=== PATIENT | female | born 1955 | race Caucasian/White ===

== ENCOUNTER 2019-06-13 13:37 | Emergency (ER) | payer OTHER ==
[2019-06-13 14:33] LABS: CHLORIDE,CL 99 mmol/L (98-107); SODIUM,NA 140 mmol/L (136-145)
[2019-06-13 14:34] LABS: ANION GAP 21.9 mmol/L (10-20)
[2019-06-13 15:05] LABS: BARBITURATE SCREEN,URINE NEGATIVE (NEGATIVE); BENZODIAZEPINES SCREEN,URINE NEGATIVE (NEGATIVE); EDDP,URINE SCREEN NEGATIVE (NEGATIVE); METHAMPHETAMINE SCREEN, URINE NEGATIVE (NEGATIVE); TCA SCREEN,URINE POSITIVE (NEGATIVE); THC SCREEN,URINE 50 NG/ML NEGATIVE (NEGATIVE)
--- NOTE | 2019-06-13 15:10 | EDM.PDOCBH ---
ED HPI GENERAL MEDICAL PROBLEM - General Chief Complaint: Drug or Alcohol Abuse Stated Complaint: suicidal ideation Time Seen by Provider: 06/13/19 13:45 Source of Information: Reports: Patient, Police History Limitations: Reports: Intoxication - History of Present Illness INITIAL COMMENTS - FREE TEXT/NARRATIVE: Mariposa is a 63 year old female who presents to ER per EMS with suicidal ideation. Patient had talked with daughter today and had expressed "that she just wanted to kill herself". Orderlies Teacher were called to scene and were enroute to our facility when patient complained of shortness of breath. EMS did note elevated blood pressure and was anxious and uncooperative with them. Patient states "wanted to be for 2 years. COVID has made things much worse for her ". States that she would "kill herself except she is scared that the act would hurt". She denies every voicing suicidal concerns to anyone, has never attempted. Has no plan. Relates has verbally abusive that " complicates my life". At present, denies shortness of breath. "was just anxious". No chest pain. Denies nausea/vomiting/abdominal pain. No urinary symptoms. Is intoxicated. Admits to drinking a quart of vodka today. Onset: Today Duration: Hour(s): Location: Reports: Generalized Associated Symptoms: Denies: Confusion, Chest Pain, Cough, Fever/Chills, Loss of Appetite, Nausea/Vomiting, Shortness of Breath - Related Data Allergies Allergy/AdvReac Type Severity Reaction Status Date / Time aspirin Allergy Other Verified 06/13/19 16:11 erythromycin base Allergy Shortness Verified 06/13/19 16:11 of Breath ibuprofen [From Advil] Allergy Other Verified 06/13/19 16:11 lidocaine Allergy Shortness Verified 06/13/19 16:11 of Breath lisinopril Allergy Cough Verified 06/13/19 16:11 naproxen [From Aleve] Allergy Shortness Verified 06/13/19 16:11 of Breath penicillin G Allergy Hives Verified 06/13/19 16:11 Sulfa (Sulfonamide Allergy Shortness Verified 06/13/19 16:11 Antibiotics) of Breath tetracycline Allergy Other Verified 06/13/19 16:11 Home Meds: Home Meds Acetaminophen with Codeine [Tylenol with Codeine #3 Tablet] 1 each PO Q6H PRN [History] Calcium Carbonate/Vitamin D3 [Caltrate 600+D] 1 tab PO DAILY 06/13/19 [History] Cholecalciferol (Vitamin D3) [Vitamin D3] 2,000 unit PO DAILY 06/13/19 [History] Cyclobenzaprine [Flexeril] 10 mg PO TID PRN 06/13/19 [History] FA/Lycopene/Lut/MV,Ca,Iron,Min [Centrum] 1 tab PO DAILY 06/13/19 [History] Fluticasone Propionate [Flonase] 16 gm NS BID 06/13/19 [History] Lansoprazole [Prevacid] 15 mg PO DAILY 06/13/19 [History] Losartan [Cozaar] 25 mg PO DAILY 06/13/19 [History] Novelty-3/DHA/Epa/Fish Oil [Novelty-3 Fish Oil 1,000 MG Sfgl] 1,000 mg PO DAILY [History] atorvaSTATin Calcium [Lipitor] 20 mg PO BEDTIME 06/13/19 [History] Past Medical History Cardiovascular History: Reports: Hypertension Psychiatric History: Reports: Addiction, Depression Social & Family History - Tobacco Use Smoking Status *Q: Current Every Day Smoker Years of Tobacco use: 40 Packs/Tins Daily: 1 - Alcohol Use Alcohol Use History: Yes - Recreational Drug Use Recreational Drug Use: No ED ROS GENERAL - Review of Systems Review Of Systems: See Below Constitutional: Denies: Fever, Chills, Malaise, Weakness, Decreased Appetite HEENT: Denies: Ear Pain, Sinus Problem, Throat Pain Respiratory: Denies: Shortness of Breath, Cough Cardiovascular: Denies: Chest Pain, Edema, Lightheadedness Endocrine: Reports: Fatigue GI/Abdominal: Denies: Abdominal Pain, Nausea, Vomiting : Reports: No Symptoms Musculoskeletal: Reports: No Symptoms Skin: Reports: No Symptoms Neurological: Reports: No Symptoms ED EXAM, BEHAVIORAL HEALTH - Physical Exam Exam: See Below Exam Limited By: Intoxication General Appearance: Alert, WD/WN, Anxious Ears: Normal External Exam, Normal TMs Nose: Normal Inspection, Normal Mucosa, No Blood Throat/Mouth: Normal Inspection, Normal Oropharynx, Other (mucous membranes dry) Head: Normocephalic Neck: Normal Inspection, Supple, Non-Tender Respiratory/Chest: No Respiratory Distress, Lungs Clear, Normal Breath Sounds Cardiovascular: Regular Rate, Rhythm GI/Abdominal: Normal Bowel Sounds, Soft, Non-Tender Extremities: Normal Inspection, No Pedal Edema Psychiatric: Alert, Oriented, Agitated, Suicidal Thoughts Skin Exam: Warm, Dry COURSE, BEHAVIORAL HEALTH COMP - Course Vital Signs: Last Vital Signs Temp 96.2 F L 06/13/19 13:45 Pulse 69 06/13/19 13:45 Resp 14 06/13/19 13:45 BP 161/72 H 06/13/19 13:45 Pulse Ox 99 06/13/19 13:45 Orders, Labs, Meds: Laboratory Tests 06/13/19 06/13/19 06/13/19 Range/Units 14:03 14:03 14:03 WBC 7.8 (4.0-10.0) x10^3/uL RBC 5.29 (4.00-5.50) x10^6/uL Hgb 15.5 (12.0-16.0) g/dL Hct 45.0 (33.0-47.0) % MCV 85.1 (78.0-93.0) fL MCH 29.3 (26.0-32.0) pg MCHC 34.4 (32.0-36.0) g/dL RDW Coeff of Francis 13.2 (10.0-15.0) % Plt Count 283 (130-400) x10^3/uL Neut % (Auto) 48.2 L (50.0-80.0) % Lymph % (Auto) 38.1 (25.0-50.0) % Evangeline % (Auto) 12.1 H (2.0-11.0) % Eos % (Auto) 0.8 (0.0-4.0) % Baso % (Auto) 0.8 (0.2-1.2) % Sodium 140 (136-145) mmol/L Potassium 3.9 (3.5-5.1) mmol/L Chloride 99 (98-107) mmol/L Carbon Dioxide 23 (21-32) mmol/L Anion Gap 21.9 H (10-20) mmol/L BUN 13 (7-18) mg/dL Creatinine 0.9 (0.55-1.02) mg/dL Est Cr Clr Drug Dosing TNP Estimated GFR (MDRD) > 60 Glucose 97 (74-106) mg/dL Calcium 8.9 (8.5-10.1) mg/dL Corrected Calcium 8.82 (8.5-10.1) mg/dL Total Bilirubin 0.4 (0.2-1.0) mg/dL AST 72 H (15-37) U/L ALT 64 H (14-59) U/L Alkaline Phosphatase 110 (46-116) U/L C-Reactive Protein 0.2 (<=0.9) mg/dL Total Protein 8.4 H (6.4-8.2) g/dL Albumin 4.1 (3.4-5.0) g/dL Globulin 4.3 Albumin/Globulin Ratio 0.95 Urine Color (YELLOW) Urine Appearance (CLEAR) Urine pH (5.0-8.0) Ur Specific Ulm Urine Protein (NEGATIVE) mg/dL Urine Glucose (UA) (NEGATIVE) mg/dL Urine Ketones (NEGATIVE) mg/dL Urine Occult Blood (NEGATIVE) Urine Nitrite (NEGATIVE) Urine Bilirubin (NEGATIVE) Urine Urobilinogen (0.2) EU/dL Ur Leukocyte Esterase (NEGATIVE) Urine RBC (NOT SEEN) /HPF Urine WBC (NOT SEEN) /HPF Ur Squamous Epith Cells (NEGATIVE) /HPF Urine Bacteria (NEGATIVE) /HPF Urine Mucus (NEGATIVE) /LPF Urine Opiates Screen (NEGATIVE) Ur Buprenorphine Scrn (NEGATIVE) Ur Oxycodone Screen (NEGATIVE) Ur EDDP (Meth Metab) (NEGATIVE) Urine Methadone Screen (NEGATIVE) Ur Barbiturates Screen (NEGATIVE) Ur Tricyclics Screen (NEGATIVE) Ur Phencyclidine Scrn (NEGATIVE) Ur Amphetamine Screen (NEGATIVE) U Methamphetamines Scrn (NEGATIVE) Urine MDMA Screen (NEGATIVE) U Benzodiazepines Scrn (NEGATIVE) U Cocaine Metab Screen (NEGATIVE) U Marijuana (THC) Screen (NEGATIVE) Ethyl Alcohol 371 H* (0-3) mg/dL 06/13/19 06/13/19 Range/Units 14:55 14:55 WBC (4.0-10.0) x10^3/uL RBC (4.00-5.50) x10^6/uL Hgb (12.0-16.0) g/dL Hct (33.0-47.0) % MCV (78.0-93.0) fL MCH (26.0-32.0) pg MCHC (32.0-36.0) g/dL RDW Coeff of Francis (10.0-15.0) % Plt Count (130-400) x10^3/uL Neut % (Auto) (50.0-80.0) % Lymph % (Auto) (25.0-50.0) % Evangeline % (Auto) (2.0-11.0) % Eos % (Auto) (0.0-4.0) % Baso % (Auto) (0.2-1.2) % Sodium (136-145) mmol/L Potassium (3.5-5.1) mmol/L Chloride (98-107) mmol/L Carbon Dioxide (21-32) mmol/L Anion Gap (10-20) mmol/L BUN (7-18) mg/dL Creatinine (0.55-1.02) mg/dL Est Cr Clr Drug Dosing Estimated GFR (MDRD) Glucose (74-106) mg/dL Calcium (8.5-10.1) mg/dL Corrected Calcium (8.5-10.1) mg/dL Total Bilirubin (0.2-1.0) mg/dL AST (15-37) U/L ALT (14-59) U/L Alkaline Phosphatase (46-116) U/L C-Reactive Protein (<=0.9) mg/dL Total Protein (6.4-8.2) g/dL Albumin (3.4-5.0) g/dL Globulin Albumin/Globulin Ratio Urine Color Yellow (YELLOW) Urine Appearance Slightly cloudy H (CLEAR) Urine pH 6.5 (5.0-8.0) Ur Specific Ulm 1.015 Urine Protein 100 H (NEGATIVE) mg/dL Urine Glucose (UA) Negative (NEGATIVE) mg/dL Urine Ketones Negative (NEGATIVE) mg/dL Urine Occult Blood Negative (NEGATIVE) Urine Nitrite Negative (NEGATIVE) Urine Bilirubin Negative (NEGATIVE) Urine Urobilinogen 0.2 (0.2) EU/dL Ur Leukocyte Esterase Trace H (NEGATIVE) Urine RBC 0-5 (NOT SEEN) /HPF Urine WBC 5-10 H (NOT SEEN) /HPF Ur Squamous Epith Cells Few H (NEGATIVE) /HPF Urine Bacteria Rare (NEGATIVE) /HPF Urine Mucus Occasional H (NEGATIVE) /LPF Urine Opiates Screen Negative (NEGATIVE) Ur Buprenorphine Scrn Negative (NEGATIVE) Ur Oxycodone Screen Negative (NEGATIVE) Ur EDDP (Meth Metab) Negative (NEGATIVE) Urine Methadone Screen Negative (NEGATIVE) Ur Barbiturates Screen Negative (NEGATIVE) Ur Tricyclics Screen Positive H (NEGATIVE) Ur Phencyclidine Scrn Negative (NEGATIVE) Ur Amphetamine Screen Negative (NEGATIVE) U Methamphetamines Scrn Negative (NEGATIVE) Urine MDMA Screen Negative (NEGATIVE) U Benzodiazepines Scrn Negative (NEGATIVE) U Cocaine Metab Screen Negative (NEGATIVE) U Marijuana (THC) Screen Negative (NEGATIVE) Ethyl Alcohol (0-3) mg/dL Re-Assessment/Re-Exam: Patient is much more calm. Talking with police officers. 1520-Contacted [facility] screener with status of patient. Labs are normal. Blood alcohol 371. Urine drug screen positive only for tricyclics. 1535- Screener talking with patient per phone. 1615 Screener does not feel patient is in imminent danger. Unable to get in touch with or daughter. Friend Margarita here. Discussed status with her and patient. She is aware that patient cannot be by herself at minimum of the next 24 hours. Advised to avoid any further alcohol. Push fluids. Screener will also be contacting patient's friend in regards to concern. Departure - Departure Time of Disposition: 16:26 Disposition: Home, Self-Care 01 Condition: Fair Clinical Impression: Alcohol abuse, Suicidal ideation - Discharge Information *PRESCRIPTION DRUG MONITORING PROGRAM REVIEWED*: No *COPY OF PRESCRIPTION DRUG MONITORING REPORT IN PATIENT CHARLI: No Referrals: Laura Machado, [Primary Care Provider] - Forms: ED Department Discharge Additional Instructions: 1. Rest 2. Push fluids 3. No further alcohol 4. Patient to not be alone for at minimum for the next 24 hours. 5. Follow up with [facility] [employer] for any further direction or services. Sepsis Event Note - Evaluation Sepsis Screening Result: No Definite Risk - Focused Exam Vital Signs: Vital Signs Temp Pulse Resp BP Pulse Ox 06/13/19 13:45 96.2 F L 69 14 161/72 H 99 Date Exam was Performed: 06/13/19 Time Exam was Performed: 16:25
== END 2019-06-13 16:36 | disposition home or self-care (01) ==
LOC: VM.ED 13:37
DX: F10.129 Alcohol abuse with intoxication, unspecified (principal); Y90.8 Blood alcohol level of 240 mg/100 ml or more; F17.210 Nicotine dependence, cigarettes, uncomplicated; I10 Essential (primary) hypertension; F32.9 Major depressive disorder, single episode, unspecified; Z79.899 Other long term (current) drug therapy; Z88.1 Allergy status to other antibiotic agents; Z88.0 Allergy status to penicillin; Z88.2 Allergy status to sulfonamides; Z88.6 Allergy status to analgesic agent
CPT/HCPCS: 36415; 80053; 80305-QW; 80307; 81001; 85025; 86140; 99285

== ENCOUNTER 2020-02-03 15:05 | Emergency (ER) | payer OTHER ==
[2020-02-03] MEDS ORDERED: Sodium Chloride 0.9% 10 ML Syringe FLUSH PRN (15:16)
[2020-02-03] MEDS ORDERED: Sodium Chloride 0.9% 1,000 ML IV ONE ×3 (15:21→19:21)
[2020-02-03] MEDS ORDERED: LORazepam 2 MG/ML SDV ONE ×3 (15:21→15:41)
[2020-02-03] MEDS ORDERED: LORazepam 2 MG/ML SDV IVPUSH ONE ×3 (15:25→19:17)
[2020-02-03] MEDS ORDERED: Flumazenil 0.1 MG/ML 5 ML MDV IVPUSH PRN ×3 (15:25→19:17)
--- NOTE | 2020-02-03 15:33 | CT ---
[id number] CT/CT Head Stroke Protocol Exam: CT Head Stroke Protocol Clinical Data: NEUROLOGIC DEFICIT COMPARISON: NO PREVIOUS SIMILAR EXAM IS AVAILABLE FINDINGS: There is significant motion artifact There is no distinct abnormal hypodensity There is no middle cerebral artery sign A repeat study is suggested Report called at time of exam There is no hemorrhage IMPRESSION: LIMITED EXAM NO HEMORRHAGE CONSIDER FOLLOW-UP Phong Thompson MD 02/03/20 [id number] Thank you for allowing us to participate in the care of your patient.
[2020-02-03] MEDS ORDERED: Fosphenytoin 500 MG.PE/10 ML SDV ONE (15:48)
[2020-02-03 15:49] LABS: PTT,PARTIAL THROMBOPLSTIN TIME 25.6 SEC (25.6-32.8)
[2020-02-03 15:58] LABS: CHLORIDE,CL 103 mmol/L (98-107); SODIUM,NA 139 mmol/L (136-145)
[2020-02-03 16:01] LABS: ANION GAP 13.7 mmol/L (10-20)
[2020-02-03] MEDS ORDERED: Succinylcholine 200 MG/10 ML MDV ONE (16:03)
[2020-02-03] MEDS ORDERED: Rocuronium 50 MG/5 ML Vial ONE (16:03)
[2020-02-03 16:43] LABS: BUPRENORPHINE,URINE NEGATIVE (NEGATIVE); MARIJUANA,URINE NEGATIVE (NEGATIVE); METHYLENEDIOXYMETHAMP,UR NEGATIVE (NEGATIVE); PHENCYCLIDINE,URINE NEGATIVE (NEGATIVE)
--- NOTE | 2020-02-03 16:44 | CR ---
[id number] RAD/RAD Chest PA or AP 1V EXAM: SINGLE VIEW CHEST. INDICATION: PLACEMENT OF ENDOTRACHEAL TUBE COMPARISON: NO PREVIOUS SIMILAR EXAM IS AVAILABLE FINDINGS: The ET tube is in the position The lungs are clear There is gastric distention There is widening of the mediastinum The cardiac silhouette is enlarged IMPRESSION: ET TUBE IN GOOD POSITION ABNORMAL APPEARANCE OF MEDIASTINUM CONSIDER CONTRAST CT CHEST Phong Thompson MD 02/03/20 [id number] Thank you for allowing us to participate in the care of your patient.
--- NOTE | 2020-02-03 17:25 | EDM.PDOC ---
ED HPI GENERAL MEDICAL PROBLEM - General Stated Complaint: STROKE CODE Time Seen by Provider: 02/03/20 15:14 Source of Information: Reports: EMS - History of Present Illness INITIAL COMMENTS - FREE TEXT/NARRATIVE: Mariposa is a 64 y/o female who was brought to the ER by EMS after she was reported as unresponsive and lying outside on her deck at her home. Last known well time was approximately 1330 today when her saw her and went out to his shed to work. He then returned to the house and found her. EMS was contacted at 1403 and by the time the patient arrived to the ER, it was reported that the patient had made some mumbled speech to first responders, but then other than a hand grasp, dit not respond for the ALS crew. Stroke code called prior to her arrival. The patient is a known alcoholic and her reports that she has been on a 4 day drinking binge; today she had at least a liter of vodka. - Related Data Allergies Allergy/AdvReac Type Severity Reaction Status Date / Time aspirin Allergy Other Verified 06/13/19 16:11 erythromycin base Allergy Shortness Verified 06/13/19 16:11 of Breath ibuprofen [From Advil] Allergy Other Verified 06/13/19 16:11 lidocaine Allergy Shortness Verified 06/13/19 16:11 of Breath naproxen [From Aleve] Allergy Shortness Verified 06/13/19 16:11 of Breath penicillin G Allergy Hives Verified 06/13/19 16:11 Sulfa (Sulfonamide Allergy Shortness Verified 06/13/19 16:11 Antibiotics) of Breath tetracycline Allergy Other Verified 06/13/19 16:11 lisinopril AdvReac Cough Verified 06/14/19 08:53 Home Meds: Home Meds Acetaminophen with Codeine [Tylenol with Codeine #3 Tablet] 1 each PO Q6H PRN 06/13/19 [History] Calcium Carbonate/Vitamin D3 [Caltrate 600+D] 1 tab PO DAILY 06/13/19 [History] Cholecalciferol (Vitamin D3) [Vitamin D3] 2,000 unit PO DAILY 06/13/19 [History] Cyclobenzaprine [Flexeril] 10 mg PO TID PRN 06/13/19 [History] FA/Lycopene/Lut/MV,Ca,Iron,Min [Centrum] 1 tab PO DAILY 06/13/19 [History] Fluticasone Propionate [Flonase] 16 gm NS BID 06/13/19 [History] Lansoprazole [Prevacid] 15 mg PO DAILY 06/13/19 [History] Losartan [Cozaar] 25 mg PO DAILY 06/13/19 [History] Morris-3/DHA/Epa/Fish Oil [Morris-3 Fish Oil 1,000 MG Sfgl] 1,000 mg PO DAILY 06/13/19 [History] atorvaSTATin Calcium [Lipitor] 20 mg PO BEDTIME 06/13/19 [History] Past Medical History Cardiovascular History: Reports: Hypertension Psychiatric History: Reports: Addiction, Depression Review of Systems - Review of Systems Review Of Systems: Unable To Obtain Reason Not Obtained: Patient unresponsive and intoxicated ED EXAM, GENERAL - Physical Exam Exam: See Below Exam Limited By: Altered Mental Status General Appearance: Other (Adult female in complete cervical spine immobilization, offers no response on questioning.) Eye Exam: Bilateral Eye: PERRL (slightly sluggish), Other (1mm) Ears: Normal External Exam Nose: Normal Inspection Throat/Mouth: Normal Inspection, Normal Lips, No Airway Compromise Head: Atraumatic, Normocephalic Neck: Other (C Collar on) Respiratory/Chest: No Respiratory Distress, Lungs Clear, Normal Breath Sounds Cardiovascular: Normal Peripheral Pulses, Regular Rate, Rhythm GI/Abdominal: Normal Bowel Sounds, Soft, Non-Tender, Other (No obvious injuries) (Female) Exam: Normal External Exam Rectal (Female) Exam: Deferred Back Exam: Normal Inspection Extremities: Normal Inspection, Normal Capillary Refill Neurological: Unresponsive Skin Exam: Warm, Dry, Intact #1 Interpretation EKG Date: 02/03/20 Time: 15:23 Rhythm: NSR Rate (Beats/Min): 74 [place]: Normal P-Wave: Present QRS: Normal ST-T: Normal QT: Prolonged Comparison: NA - No Prior EKG Course - Vital Signs Text/Narrative:: 1508 Patient arrives to ER and went directly to CT from EMS. On the way back from CT, noted seizure activity in right arm. Tonic clonic activity and rgidity noted. MARKETING OUTREACH COORDINATOR assessing patient and obtaining hx as able. Seizure like activity last about 1 minute. Lorazepam 2mg IVP ordered. Patient then had a repeated seizure with full tonic clonic activity. Lorazepam 4mg IVP repeated. She subsequently seized a third time and Lorazepam 4mg IVp was ordered, but only 2mg IVP was available in the ER. Phenytoin 1500mg IVPB was ordered at this time. No seizure hx noted in chart. 1530 Patient had now had her 4th seizure and [facility] contacted to request transfer for Status Epilecticuc. Radiologist called with CT results and no bleed noted, but there was aot of motion and repeat study was advised. Dr Artis, Interventional Neurologist regulatory consultant contacted and case presented. He advised intubating patient and not delaying transport and not repeating CT here at this time. 1550 Patient moved to trauma room and prepared for intubation due to Status Epilecticus. The patient did have spontaneous respirations and her oxygen sats were 99-100% on 2 liters/min of oxygen via nasal cannula. Patient proceeded to seize again, the Fosphenytoin was still infusing, but she was given Versed 6mg IVP to alleviate the seizure activity prior to intubation. Airway equipment was prepared and patient was given Ketamine (2mg/kg) 160mg IVP prior to intubation. She was then given Etomidate 20mg IVP and Succinylcholine 120mg IVP for induction and paralyzation. MAC 3 blade was used to visualize the cords by MARKETING OUTREACH COORDINATOR with one failed attempt. MAC 3 Blade used to 7.5cm ET tubed was placed with sylet on second attempt by Polina Noble NREMT-Yumi. The stylet was removed and tube advanced to 23cm at the teeth. Balloon inflated with 10ml of air. Bilateral lung sounds were heard with auscultation and condensation noted in the tube. End tidal CO2 positive and noted to be 50mmHg initially and then noted to be trending down. The tube was secured with a bite block tube amezquita. She was then given Rocuronium 50mg IVP for transport. Patient was ventilated and then placed on ventilator. NG tube was placed. Patient then prepped for transport with [facility]. Labs reviewed. Note CBC neg, AST=45, Troponin=<0.017, UA +nitrates, WBCs 20-30, Bacteria moderate, Blood trace-Urine Cx set up. OUMU=043. UDS +benzos (expected). Report called to [facility], note UTI not treated at this facility. - Orders/Labs/Meds Orders: Active Orders 24 hr Category Date Time Status EKG Documentation Completion [RC] STAT Care 02/03/20 15:17 Active Mckeon Catheter Insertion [Insert Urinary Catheter] [OM. Care 02/03/20 15:30 Ordered PC] Q24H Urinary Catheter Assessment [RC] ASDIRECTED Care 02/03/20 15:19 Active CULTURE URINE [RM] Stat Lab 02/03/20 16:37 Received Sodium Chloride 0.9% [Normal Saline] 1,000 ml Med 02/03/20 15:21 Active IV ONETIME Sodium Chloride 0.9% [Saline Flush] Med 02/03/20 15:16 Active 10 ml FLUSH ASDIRECTED PRN flumazeniL [Romazicon] Med 02/03/20 15:25 Active 0.2 mg IVPUSH ASDIRECTED PRN flumazeniL [Romazicon] Med 02/03/20 15:36 Active 0.2 mg IVPUSH ASDIRECTED PRN Saline Lock Insert [OM.PC] Stat Oth 02/03/20 15:17 Ordered Medication Orders Flumazenil (Romazicon) 0.2 mg IVPUSH ASDIRECTED PRN PRN Reason: Respiratory Depression Flumazenil (Romazicon) 0.2 mg IVPUSH ASDIRECTED PRN PRN Reason: Respiratory Depression Sodium Chloride (Normal Saline) 1,000 mls @ 50 mls/hr IV ONETIME ONE Stop: 02/04/20 11:20 Sodium Chloride (Saline Flush) 10 ml FLUSH ASDIRECTED PRN PRN Reason: Keep Vein Open Labs: Laboratory Tests 02/03/20 02/03/20 02/03/20 Range/Units 15:23 15:23 15:23 WBC 8.3 (4.0-10.0) x10^3/uL RBC 4.98 (4.00-5.50) x10^6/uL Hgb 14.8 (12.0-16.0) g/dL Hct 44.0 (33.0-47.0) % MCV 88.4 D (78.0-93.0) fL MCH 29.7 (26.0-32.0) pg MCHC 33.6 (32.0-36.0) g/dL RDW Coeff of Francis 13.7 (10.0-15.0) % Plt Count 276 (130-400) x10^3/uL Neut % (Auto) 66.0 (50.0-80.0) % Lymph % (Auto) 26.6 (25.0-50.0) % Kendall % (Auto) 4.9 (2.0-11.0) % Eos % (Auto) 1.9 (0.0-4.0) % Baso % (Auto) 0.6 (0.2-1.2) % PT 10.4 (9.5-12.3) SEC INR 1.0 L (2.0-3.5) APTT 25.6 (25.6-32.8) SEC Sodium 139 (136-145) mmol/L Potassium 4.7 (3.5-5.1) mmol/L Chloride 103 (98-107) mmol/L Carbon Dioxide 27 (21-32) mmol/L Anion Gap 13.7 (10-20) mmol/L BUN 14 (7-18) mg/dL Creatinine 0.9 (0.55-1.02) mg/dL Est Cr Clr Drug Dosing TNP Estimated GFR (MDRD) > 60 Glucose 96 (74-106) mg/dL Calcium 8.5 (8.5-10.1) mg/dL Corrected Calcium 8.82 (8.5-10.1) mg/dL Magnesium 1.8 (1.8-2.4) mg/dL Total Bilirubin 0.3 (0.2-1.0) mg/dL AST 45 H (15-37) U/L ALT 42 (14-59) U/L Alkaline Phosphatase 105 (46-116) U/L Troponin I < 0.017 (<=0.056) ng/mL Total Protein 8.3 H (6.4-8.2) g/dL Albumin 3.6 (3.4-5.0) g/dL Globulin 4.7 Albumin/Globulin Ratio 0.77 Amylase 36 (25-115) U/L Lipase 159 (73-393) U/L Urine Color (YELLOW) Urine Appearance (CLEAR) Urine pH (5.0-8.0) Ur Specific Eagle Urine Protein (NEGATIVE) mg/dL Urine Glucose (UA) (NEGATIVE) mg/dL Urine Ketones (NEGATIVE) mg/dL Urine Occult Blood (NEGATIVE) Urine Nitrite (NEGATIVE) Urine Bilirubin (NEGATIVE) Urine Urobilinogen (0.2) EU/dL Ur Leukocyte Esterase (NEGATIVE) Urine RBC (NOT SEEN) /HPF Urine WBC (NOT SEEN) /HPF Ur Squamous Epith Cells (NEGATIVE) /HPF Urine Bacteria (NEGATIVE) /HPF Urine Mucus (NEGATIVE) /LPF Urine Opiates Screen (NEGATIVE) Ur Buprenorphine Scrn (NEGATIVE) Ur Oxycodone Screen (NEGATIVE) Ur EDDP (Meth Metab) (NEGATIVE) Urine Methadone Screen (NEGATIVE) Ur Barbituates Screen (NEGATIVE) Ur Tricyclics Screen (NEGATIVE) Ur Phencyclidine Scrn (NEGATIVE) Ur Amphetamines Screen (NEGATIVE) U Methamphetamines Scrn (NEGATIVE) Urine MDMA Screen (NEGATIVE) U Benzodiazepines Scrn (NEGATIVE) Urine Cocaine Screen (NEGATIVE) U Marijuana (THC) Screen (NEGATIVE) Ethyl Alcohol 269 H (0-3) mg/dL SARS CoV-2 RNA Rapid UNRULY (NEGATIVE) 02/03/20 02/03/20 02/03/20 Range/Units 16:09 16:37 16:37 WBC (4.0-10.0) x10^3/uL RBC (4.00-5.50) x10^6/uL Hgb (12.0-16.0) g/dL Hct (33.0-47.0) % MCV (78.0-93.0) fL MCH (26.0-32.0) pg MCHC (32.0-36.0) g/dL RDW Coeff of Francis (10.0-15.0) % Plt Count (130-400) x10^3/uL Neut % (Auto) (50.0-80.0) % Lymph % (Auto) (25.0-50.0) % Kendall % (Auto) (2.0-11.0) % Eos % (Auto) (0.0-4.0) % Baso % (Auto) (0.2-1.2) % PT (9.5-12.3) SEC INR (2.0-3.5) APTT (25.6-32.8) SEC Sodium (136-145) mmol/L Potassium (3.5-5.1) mmol/L Chloride (98-107) mmol/L Carbon Dioxide (21-32) mmol/L Anion Gap (10-20) mmol/L BUN (7-18) mg/dL Creatinine (0.55-1.02) mg/dL Est Cr Clr Drug Dosing Estimated GFR (MDRD) Glucose (74-106) mg/dL Calcium (8.5-10.1) mg/dL Corrected Calcium (8.5-10.1) mg/dL Magnesium (1.8-2.4) mg/dL Total Bilirubin (0.2-1.0) mg/dL AST (15-37) U/L ALT (14-59) U/L Alkaline Phosphatase (46-116) U/L Troponin I (<=0.056) ng/mL Total Protein (6.4-8.2) g/dL Albumin (3.4-5.0) g/dL Globulin Albumin/Globulin Ratio Amylase (25-115) U/L Lipase (73-393) U/L Urine Color Light yellow (YELLOW) Urine Appearance Cloudy H (CLEAR) Urine pH 6.5 (5.0-8.0) Ur Specific Eagle 1.015 Urine Protein 30 H (NEGATIVE) mg/dL Urine Glucose (UA) Negative (NEGATIVE) mg/dL Urine Ketones Negative (NEGATIVE) mg/dL Urine Occult Blood Trace-intact H (NEGATIVE) Urine Nitrite Positive H (NEGATIVE) Urine Bilirubin Negative (NEGATIVE) Urine Urobilinogen 0.2 (0.2) EU/dL Ur Leukocyte Esterase Moderate H (NEGATIVE) Urine RBC 0-5 (NOT SEEN) /HPF Urine WBC 20-30 H (NOT SEEN) /HPF Ur Squamous Epith Cells Rare (NEGATIVE) /HPF Urine Bacteria Moderate H (NEGATIVE) /HPF Urine Mucus Not seen (NEGATIVE) /LPF Urine Opiates Screen Negative (NEGATIVE) Ur Buprenorphine Scrn Negative (NEGATIVE) Ur Oxycodone Screen Negative (NEGATIVE) Ur EDDP (Meth Metab) Negative (NEGATIVE) Urine Methadone Screen Negative (NEGATIVE) Ur Barbituates Screen Negative (NEGATIVE) Ur Tricyclics Screen Negative (NEGATIVE) Ur Phencyclidine Scrn Negative (NEGATIVE) Ur Amphetamines Screen Negative (NEGATIVE) U Methamphetamines Scrn Negative (NEGATIVE) Urine MDMA Screen Negative (NEGATIVE) U Benzodiazepines Scrn Positive H (NEGATIVE) Urine Cocaine Screen Negative (NEGATIVE) U Marijuana (THC) Screen Negative (NEGATIVE) Ethyl Alcohol (0-3) mg/dL SARS CoV-2 RNA Rapid UNRULY Negative (NEGATIVE) Meds: Medications Generic Name Dose Route Start Last Admin Trade Name Freq PRN Reason Stop Dose Admin Flumazenil 0.2 mg 02/03/20 15:25 Romazicon IVPUSH ASDIRECTED PRN Respiratory Depression Flumazenil 0.2 mg 02/03/20 15:36 Romazicon IVPUSH ASDIRECTED PRN Respiratory Depression Sodium Chloride 1,000 mls @ 50 mls/hr 02/03/20 15:21 Normal Saline IV 02/04/20 11:20 ONETIME ONE Sodium Chloride 10 ml 02/03/20 15:16 Saline Flush FLUSH ASDIRECTED PRN Keep Vein Open Discontinued Medications Generic Name Dose Route Start Last Admin Trade Name Freq PRN Reason Stop Dose Admin Etomidate Confirm 02/03/20 17:39 Amidate Administered 02/03/20 17:40 Dose 20 mg .ROUTE .STK-MED ONE Fosphenytoin Sodium Confirm 02/03/20 15:48 Cerebyx Administered 02/03/20 15:49 Dose 1,500 mg.pe .ROUTE .STK-MED ONE Fosphenytoin Sodium 1,000 mg. 120 mls @ 600 mls/hr 02/03/20 15:37 pe/ Sodium Chloride IV 02/03/20 15:48 ONETIME ONE Fosphenytoin Sodium 1,500 mg. 130 mls @ 400 mls/hr 02/03/20 15:38 pe/ Sodium Chloride IV 02/03/20 15:57 ONETIME ONE Ketamine HCl Confirm 02/03/20 17:39 Ketalar Administered 02/03/20 17:40 Dose 200 mg .ROUTE .STK-MED ONE Lorazepam Confirm 02/03/20 15:21 Ativan Administered 02/03/20 15:22 Dose 2 mg .ROUTE .STK-MED ONE Lorazepam 4 mg 02/03/20 15:25 Ativan IVPUSH 02/03/20 15:26 STAT ONE Lorazepam Confirm 02/03/20 15:34 Ativan Administered 02/03/20 15:35 Dose 4 mg .ROUTE .STK-MED ONE Lorazepam Confirm 02/03/20 15:41 Ativan Administered 02/03/20 15:42 Dose 2 mg .ROUTE .STK-MED ONE Lorazepam 2 mg 02/03/20 15:36 Ativan IVPUSH 02/03/20 15:37 STAT ONE Midazolam HCl Confirm 02/03/20 17:39 Versed 1 Mg/Ml Administered 02/03/20 17:40 Dose 6 mg .ROUTE .STK-MED ONE Rocuronium [place] Confirm 02/03/20 16:03 Zemuron Administered 02/03/20 16:04 Dose 50 mg .ROUTE .STK-MED ONE Succinylcholine Chloride Confirm 02/03/20 16:03 Quelicin Administered 02/03/20 16:04 Dose 200 mg .ROUTE .STK-MED ONE - Radiology Interpretation Free Text/Narrative:: CT Head WO=no acute bleed, motion detected recommend repeat study (See final report) Departure - Departure Time of Disposition: 15:40 Disposition: DC/Tfer to [facility] 02 Clinical Impression: Status epilepticus, Elevated liver enzymes, COVID-19 ruled out by laboratory testing Acute alcoholic intoxication in alcoholism Qualifiers: Complication of substance-induced condition: with delirium Qualified Code(s): F10.221 - Alcohol dependence with intoxication delirium UTI (urinary tract infection) Qualifiers: Urinary tract infection type: site unspecified Hematuria presence: without hematuria Qualified Code(s): N39.0 - Urinary tract infection, site not specified - Discharge Information Referrals: Laura Machado DO [Primary Care Provider] - Forms: Interfacility Transfer EMTALA - My Orders Last 24 Hours: My Active Orders 02/03/20 15:16 Sodium Chloride 0.9% [Saline Flush] 10 ml FLUSH ASDIRECTED PRN 02/03/20 15:17 EKG Documentation Completion [RC] STAT Saline Lock Insert [OM.PC] Stat 02/03/20 15:19 Urinary Catheter Assessment [RC] ASDIRECTED 02/03/20 15:21 Sodium Chloride 0.9% [Normal Saline] 1,000 ml IV ONETIME 02/03/20 15:25 flumazeniL [Romazicon] 0.2 mg IVPUSH ASDIRECTED PRN 02/03/20 15:30 Mckeon Catheter Insertion [Insert Urinary Catheter] [OM.PC] Q24H 02/03/20 15:36 flumazeniL [Romazicon] 0.2 mg IVPUSH ASDIRECTED PRN 02/03/20 16:37 CULTURE URINE [RM] Stat - Assessment/Plan Last 24 Hours: My Active Orders 02/03/20 15:16 Sodium Chloride 0.9% [Saline Flush] 10 ml FLUSH ASDIRECTED PRN 02/03/20 15:17 EKG Documentation Completion [RC] STAT Saline Lock Insert [OM.PC] Stat 02/03/20 15:19 Urinary Catheter Assessment [RC] ASDIRECTED 02/03/20 15:21 Sodium Chloride 0.9% [Normal Saline] 1,000 ml IV ONETIME 02/03/20 15:25 flumazeniL [Romazicon] 0.2 mg IVPUSH ASDIRECTED PRN 02/03/20 15:30 Mckeon Catheter Insertion [Insert Urinary Catheter] [OM.PC] Q24H 02/03/20 15:36 flumazeniL [Romazicon] 0.2 mg IVPUSH ASDIRECTED PRN 02/03/20 16:37 CULTURE URINE [RM] Stat Assessment:: 1)Status Epilecticus 2)Acute Alcohol Intoxication in Alcoholism 3)Stroke Code 4)Elevated Liver Function Tests 5)UTI 6)COVID negative screening Plan: -Transfer to [facility] to Dr Artis via [facility]/ALS Crew -Intubated prior to transport due to status epilecticus -Note +UTI on labs, no treated prior to departure from [place]
[2020-02-03] MEDS ORDERED: Ketamine 200 MG/20 ML MDV ONE (17:39)
[2020-02-03] MEDS ORDERED: Etomidate 2 MG/ML 10 ML SDV ONE (17:39)
[2020-02-03] MEDS ORDERED: Midazolam 1 MG/ML 2 ML SDV ONE (17:39)
[2020-02-03] MEDS ORDERED: Etomidate 2 MG/ML 10 ML SDV IVPUSH ONE (19:15)
[2020-02-03] MEDS ORDERED: Ketamine 200 MG/20 ML MDV IVPUSH ONE (19:16)
[2020-02-03] MEDS ORDERED: Midazolam 1 MG/ML 2 ML SDV IVPUSH STA (19:16)
[2020-02-03] MEDS ORDERED: Rocuronium 50 MG/5 ML Vial IVPUSH ONE (19:17)
[2020-02-03] MEDS ORDERED: Succinylcholine 200 MG/10 ML MDV IV STA (19:18)
== END 2020-02-03 16:50 | disposition short-term general hospital (02) ==
LOC: VM.ED 15:05
DX: I63.9 Cerebral infarction, unspecified (principal); G40.101 Localization-related (focal) (partial) symptomatic epilepsy and epileptic syndromes with simple partial seizures, not intractable, with status epilepticus; F10.221 Alcohol dependence with intoxication delirium; N39.0 Urinary tract infection, site not specified; Z20.828 Contact with and (suspected) exposure to other viral communicable diseases; R79.89 Other specified abnormal findings of blood chemistry; I10 Essential (primary) hypertension; Z88.1 Allergy status to other antibiotic agents; Z88.0 Allergy status to penicillin; Z88.8 Allergy status to other drugs, medicaments and biological substances; Z88.2 Allergy status to sulfonamides; Z88.4 Allergy status to anesthetic agent; Z79.899 Other long term (current) drug therapy
CPT/HCPCS: 31500; 36415; 43752; 51702; 70450; 71045; 80053; 80305; 80307; 81001; 82150; 83690; 83735; 84484; 85025; 85610; 85730; 87086; 87088; 87186; 87635; 93005; 93010; 94760; 96374; 99284; 99285; J0330; J2060; J2250; J3490; J7030; Q2009; U0002

== ENCOUNTER 2022-01-23 08:34 | Emergency (ER) | payer MEDICARE, BC | END 2022-01-23 09:12 | disposition home or self-care (01) | LOC: VM.ED 08:34 | DX: G89.18 Other acute postprocedural pain (principal); I10 Essential (primary) hypertension; Z88.6 Allergy status to analgesic agent; Z88.1 Allergy status to other antibiotic agents; Z88.4 Allergy status to anesthetic agent; Z88.0 Allergy status to penicillin; Z88.2 Allergy status to sulfonamides; Z79.899 Other long term (current) drug therapy | CPT/HCPCS: 99283 ==